=== PATIENT | female | born 1945 | race Caucasian/White ===

== ENCOUNTER 2024-09-29 04:02 | Emergency (ER) | payer OTHER ==
[~2024-09-29] VITALS: Ht 170.2 cm; Wt 80.0 kg
[2024-09-29 04:15] VITALS: O2SAT 100
[2024-09-29 04:55] LABS: HEMATOCRIT. 31.0 % (36.0-48.0); HEMOGLOBIN. 10.6 g/dL (12.0-16.0); MEAN PLATELET VOLUME 7.4 fl (7.4-10.4); PLATELET 429 x1000/uL (130-400); RED BLOOD CELL COUNT 3.29 mill/uL (4.2-5.4); RED CELL DISTRIBUTION WIDTH 14.4 % (11.6-14.6)
[2024-09-29 05:09] LABS: CREATININE 0.6 mg/dL (0.6-1.0); UREA NITROGEN BLOOD 14 mg/dL (9-23)
[2024-09-29] MEDS: HYDRALAZINE 20MG/ML VIAL IV ONE (05:55)
[2024-09-29] MEDS: ACETAMINOPHEN 325MG TABLET PO ONE (05:55)
[2024-09-29] MEDS: POTASSIUM CHLORIDE 20MEQ/PACKET PO NR (05:55)
[2024-09-29] MEDS ORDERED: ONDANSETRON HCL 4MG/2ML INJ IV PRN (06:45)
[2024-09-29] MEDS ORDERED: MORPHINE SULFATE 2 MG/ML INJ (NOT FOR IM USE) IV PRN (06:45)
[2024-09-29] MEDS ORDERED: HYDROCODONE/ACETAMINOPHEN 5/325MG TABLET PO PRN (06:45)
[2024-09-29] MEDS ORDERED: MAGNESIUM/ALUMINUM HYDROXIDE/SIMETHICONE 30ML UDC PO PRN (06:45)
[2024-09-29] MEDS ORDERED: CLONIDINE 0.1MG TABLET PO PRN (06:45)
[2024-09-29] MEDS ORDERED: ACETAMINOPHEN 325MG TABLET PO PRN (06:45)
[2024-09-29] MEDS ORDERED: ZOLPIDEM TARTRATE 5MG TABLET PO PRN (06:45)
[2024-09-29] MEDS ORDERED: NALOXONE HCL 0.4MG/ML VIAL IV PRN (07:00)
[2024-09-29 07:51] VITALS: BP 147/50; PULSE 71; RESP 12; TEMP 36.9; O2SAT 98
[2024-09-29] MEDS ORDERED: PANTOPRAZOLE SODIUM 40 MG/VIAL IV SCH (09:00)
[2024-09-29] MEDS ORDERED: ENOXAPARIN 40MG/0.4ML SYR SUBCUT SCH (09:00)
[2024-09-29 10:06] LABS: BAND% 3.0 % (1.0-6.0); EOSINOPHILS % MANUAL 2.0 % (0.0-5.0); LYMPHOCYTES % MANUAL 33.0 % (20.0-60.0); MONOCYTES % MANUAL 6.0 % (2.0-8.0); NEUTROPHILS % MANUAL 56.0 % (45.0-75.0); PLATELET ESTIMATE SLIGHTLY INCREASED
== END 2024-09-29 08:19 | disposition short-term general hospital (02) ==
LOC: ER 04:02 → EDBEDREQ 06:01 → EDBEDREQTM 06:01 → ER 08:19 → CANBEDREQ 08:19
DX: I10 Essential (primary) hypertension (principal); R51.9 Headache, unspecified
CPT/HCPCS: 99291; 96374; 70450; 80048; 85025; 36415; 71045; 93005; J0360; A4606